=== PATIENT | male | born 1960 | race Caucasian/White ===

== ENCOUNTER 2020-01-31 | Emergency (ER) | payer SELFPAY ==
[~2020-01-31] MED LIST: LORTAB5 PO; NEXIUM40 M1 PO; NO CURRENT MEDS
[2020-01-31 11:52] LABS: IMMATURE GRANULOCYTES 0.8 % (0.0-5.0); MEAN CORPUSCULAR HGB 24.8 pG CALC (26.0-32.0); MEAN CORPUSCULAR HGB CONC 30.3 g/dL CAL (32.0-36.0); NEUT# 15.06 thou/uL (1.82-7.42); RED BLOOD COUNT 4.64 mill/uL (4.70-6.10); RED CELL DISTRI WIDTH 14.9 % (11.5-15.5)
[2020-01-31 11:58] LABS: HEMATOCRIT 37.9 % (39.0-50.0); HEMOGLOBIN 11.5 g/dl (14.0-18.0); MEAN CELL VOLUME 81.7 fL CALC (80.0-100.0)
[2020-01-31 12:37] LABS: ACT PARTIAL THROMBO TIME 25.5 SECONDS (20.0-32.5); PROTHROMBIN TIME 10.4 SECONDS (9.0-12.5)
[2020-01-31 12:38] LABS: ALBUMIN 5.1 g/dL (3.2-5.0); ANION GAP 21 (6-22 (CALC)); BUN 20 mg/dL (9-20); BUN/CREATININE RATIO 25 (12-20 (CALC)); CARBON DIOXIDE 20 mmol/l (22-30); CHLORIDE 103 mmol/l (95-108); CREATININE 0.8 mg/dL (0.7-1.3); GFR > 60 ML/MIN (>=60 (CALC)); GFR FOR AFR.AMER. > 60 ML/MIN (>=60 (CALC)); SGOT/AST 62 u/l (17-59); SODIUM 138 mmol/l (137-146); TOTAL PROTEIN 9.1 g/dL (6.3-8.2)
[2020-01-31 12:39] LABS: ALKALINE PHOSPHATASE 147 u/l (38-126); BILIRUBIN, TOTAL 0.4 mg/dL (0.0-1.4)
[2020-01-31 12:50] LABS: MYOGLOBIN 69 ng/mL (0 - 121)
== END 2020-01-31 12:10 | disposition short-term general hospital (02) | DRG 87 ==
PROVIDERS: Emergency Medicine
DX: S02.19XA Other fracture of base of skull, initial encounter for closed fracture (principal); I62.01 Nontraumatic acute subdural hemorrhage; I60.8 Other nontraumatic subarachnoid hemorrhage; E11.9 Type 2 diabetes mellitus without complications; I10 Essential (primary) hypertension; I25.10 Atherosclerotic heart disease of native coronary artery without angina pectoris; I25.2 Old myocardial infarction; W18.30XA Fall on same level, unspecified, initial encounter; Y92.002 Bathroom of unspecified non-institutional (private) residence as the place of occurrence of the external cause; R40.2412 Glasgow coma scale score 13-15, at arrival to emergency department; Z79.02 Long term (current) use of antithrombotics/antiplatelets; Z87.891 Personal history of nicotine dependence; Z95.5 Presence of coronary angioplasty implant and graft

== ENCOUNTER 2022-04-22 14:16 | Emergency (ER) | payer OTHER ==
[2022-04-22] VITALS (21 sets, daily range): BP systolic 117–143; BP diastolic 77–103
[~2022-04-22] VITALS: Ht 182.9 cm; Wt 109.0 kg
[2022-04-22 14:47] LABS: IMMATURE GRANULOCYTES 0.7 % (0.0-5.0); MEAN CELL VOLUME 84.1 fL CALC (80.0-100.0); MEAN CORPUSCULAR HGB 26.8 pG CALC (26.0-32.0); MEAN CORPUSCULAR HGB CONC 31.8 g/dL CAL (32.0-36.0); NEUT# 11.05 thou/uL (1.82-7.42); RED BLOOD COUNT 5.79 mill/uL (4.70-6.10); RED CELL DISTRI WIDTH 13.1 % (11.5-15.5)
[2022-04-22 14:48] LABS: HEMATOCRIT 48.7 % (39.0-50.0); HEMOGLOBIN 15.5 g/dl (14.0-18.0)
[2022-04-22 14:56] LABS: ALBUMIN 4.5 g/dL (3.2-5.0); ANION GAP 17 (6-22 (CALC)); BILIRUBIN, TOTAL 0.4 mg/dL (0.0-1.4); BUN 27 mg/dL (9-20); BUN/CREATININE RATIO 21 (12-20 (CALC)); CARBON DIOXIDE 20 mmol/l (22-30); CHLORIDE 104 mmol/l (95-108); CREATININE 1.3 mg/dL (0.7-1.3); GFR FOR AFR.AMER. > 60 ML/MIN (>=60 (CALC)); GFR OTHER RACES 57 ML/MIN (>=60 (CALC)); SGOT/AST 21 u/l (17-59); SODIUM 136 mmol/l (137-146)
[2022-04-22 15:08] LABS: ALKALINE PHOSPHATASE 334 u/l (38-126)
[2022-04-22] MEDS ORDERED: ASPIRIN81 MG PO (15:16)
[2022-04-22] MEDS ORDERED: ATORVASTATIN CA80 MG PO (15:17)
[2022-04-22] MEDS ORDERED: FARXIGA10 MG (15:17)
[2022-04-22] MEDS ORDERED: ELIQUIS5 MG PO (15:17)
[2022-04-22] MEDS ORDERED: ISOSORBIDE MONO60 MG PO (15:18)
[2022-04-22] MEDS ORDERED: LOPID600 MG PO (15:18)
[2022-04-22] MEDS ORDERED: METFORMIN HCL1000 MG PO (15:19)
[2022-04-22] MEDS ORDERED: TOPROL XL100 MG PO (15:19)
[2022-04-22] MEDS ORDERED: LISINOPRIL10 MG PO (15:19)
[2022-04-22] MEDS ORDERED: TRESIBA FL200 UNIT/M SC (15:20)
[2022-04-22] MEDS ORDERED: ORPHENADRINE100 MG PO (15:21)
[2022-04-22] MEDS ORDERED: DICLOFENAC75 MG PO (15:21)
== END 2022-04-22 19:35 | disposition short-term general hospital (02) | DRG 204 ==
LOC: ED 14:16
PROVIDERS: Family Medicine
DX: R91.8 Other nonspecific abnormal finding of lung field (principal); K76.9 Liver disease, unspecified; M89.9 Disorder of bone, unspecified; I10 Essential (primary) hypertension; E11.9 Type 2 diabetes mellitus without complications; I25.10 Atherosclerotic heart disease of native coronary artery without angina pectoris; E78.00 Pure hypercholesterolemia, unspecified; I25.2 Old myocardial infarction; F17.200 Nicotine dependence, unspecified, uncomplicated; Z95.5 Presence of coronary angioplasty implant and graft; Z86.73 Personal history of transient ischemic attack (TIA), and cerebral infarction without residual deficits; Z79.84 Long term (current) use of oral hypoglycemic drugs; Z79.4 Long term (current) use of insulin; Z20.822 Contact with and (suspected) exposure to COVID-19
CPT/HCPCS: Q9967